=== PATIENT | female | born 1960 | race African-American/Black ===

== ENCOUNTER → 2017-02-06 | Day surgery (SDC) | payer BC ==
[~2017-02-06] MED LIST: IBUPROFEN800 MG PO; MOBIC; NO MEDICATIONS; TYLENOL EXTRA500 M1 PO; ULTRAM PO; VITAMIN D350000 UNIT PO
--- NOTE | ~2017-02-06 | OR ---
Unit #: [id number] #: [id number] Patient: TRINITY DOUGHERTY [id number] [address] [id number] O MR#: [id number] NAME: TRINITY DOUGHERTY. ROOM: Date of Procedure: 02/06/2017 Admission Date: 02/06/2017 Surgeon: Reji Barragan M.D. : 1960 Attending Physician: Reji Barragan M.D. Primary Care Physician: Payton Jackson M.D. OPERATIVE REPORT PROCEDURE PERFORMED Colonoscopy with snare polypectomy. INDICATIONS FOR PROCEDURE Average risk for colorectal cancer. MEDICATIONS Monitored anesthesia. POSTOPERATIVE FINDINGS 1. Polyp 6 mm to 8 mm in sigmoid colon, snared and sent for histopathology. Rest of the exam to cecum was normal. 2. Good prep. 3. Mild diverticulosis. PLAN Follow up on the pathology report. If adenomatous, repeat colonoscopy in 5 years. DESCRIPTION OF PROCEDURE The patient was explained of the procedure, risks, and benefits along with risks and benefits of anesthesia. She was brought to the endoscopy room. Propofol anesthesia was given. Rectal exam was done, which was normal. Colonoscope was lubricated, passed up the rectum, advanced under direct vision all the way to the cecum. Cecum was identified by ileocecal valve and appendiceal orifice. I then started to pull the scope out carefully looking. Polyp seen in sigmoid colon were snared and sent for histopathology. I retroflexed in the rectum, small hemorrhoids seen. The scope was gently pulled out. She tolerated it well. Dictated by... Peg Matthews/linwood TD: 02/07/2017 01:18 JOB #: [id number] Unit #: [id number] #: [id number] Patient: TRINITY DOUGHERTY OPERATIVE REPORT Page 1 of 1 X Reji Barragan MD PROCEDURE OPERATIVE NOTE
== END | disposition home or self-care (01) ==
LOC: COPS 08:56
PROVIDERS: Internal Medicine
PROC: 0DBN8ZX Excision of Sigmoid Colon, Via Natural or Artificial Opening Endoscopic, Diagnostic (ICD-10-PCS; principal; 2017-02-06 11:00)
DX: Z12.11 Encounter for screening for malignant neoplasm of colon (principal); K63.5 Polyp of colon; K57.30 Diverticulosis of large intestine without perforation or abscess without bleeding; K64.9 Unspecified hemorrhoids; J44.9 Chronic obstructive pulmonary disease, unspecified; F17.200 Nicotine dependence, unspecified, uncomplicated; M54.2 Cervicalgia; Z79.899 Other long term (current) drug therapy; Z98.890 Other specified postprocedural states
CPT/HCPCS: 88305; J2250